=== PATIENT | female | born 1970 | race Caucasian/White ===

== ENCOUNTER 2019-06-27 20:42 | Emergency (ER) | payer BC ==
[~2019-06-27] VITALS: Ht 165.1 cm; Wt 59.1 kg
[2019-06-27 20:46] VITALS: BP 123/88
--- NOTE | 2019-06-27 20:53 | NUR ---
CRISTINA REPORTS TETANUS GREATER 5 YEARS
--- NOTE | 2019-06-27 21:02 | NUR ---
LEFT LATERAL CRESENT SHAPED LACERATION TO HAND IRRIGATED WITH NaCl WITH AREOJET CLEANED. PATIETN TOLERATED WELL.
[2019-06-27] MEDS ORDERED: LIDOcaine 1% W/epiNEPHrine 1:200,000 10ml vial IJ ONE (21:10)
[2019-06-27] MEDS ORDERED: TETanus/Pertussis (Acell)/Diphther VAC/PF (Tdap-Adult) 0.5ml syringe IMVAC ONE (21:10)
== END 2019-06-27 22:16 | disposition home or self-care (01) ==
LOC: ER 20:42
DX: S61.412A Laceration without foreign body of left hand, initial encounter (principal); R19.7 Diarrhea, unspecified; K59.00 Constipation, unspecified; W26.8XXA Contact with other sharp object(s), not elsewhere classified, initial encounter; Y93.89 Activity, other specified; Y92.89 Other specified places as the place of occurrence of the external cause; Y99.8 Other external cause status
CPT/HCPCS: 12002; 90471; 90715; 99283

== ENCOUNTER 2021-02-15 19:54 | Emergency (ER) | payer BC ==
[~2021-02-15] VITALS: Ht 165.1 cm; Wt 56.8 kg
[2021-02-15 20:33] LABS: BASOPHILS % (AUTO) 0.4 % (0-1); EOSINOPHILS % (AUTO) 0.2 % (0-6); HEMATOCRIT 37.8 % (35.0-45.0); HEMOGLOBIN 13.1 g/dl (12.0-16.0); LYMPHOCYTES % (AUTO) 8.9 % (21-51); MEAN CORPUSCULAR HEMOGLOBIN 31.6 PG (27.0-31.0); MEAN CORPUSCULAR HGB CONC 34.7 g/dL (33.0-36.5); MEAN PLATELET VOLUME 7.8 FL (7.4-10.4); MONOCYTES # (AUTO) 0.4 X10'3 (0-0.9); MONOCYTES % (AUTO) 3.4 % (2-12); NEUTROPHILS # (AUTO) 9.9 X10'3 (1.8-7.7); NEUTROPHILS % (AUTO) 87.1 % (42-75); PLATELET COUNT 225 X10'3 (140-440); RED BLOOD COUNT 4.15 X10'6 (4.20-5.60); RED CELL DISTRIBUTION WIDTH 12.4 % (11.5-14.5); WHITE BLOOD COUNT 11.3 X10'3 (4.5-11.0)
[2021-02-15 20:46] LABS: ALANINE AMINOTRANSFERASE 38 U/L (12-78); ALBUMIN/GLOBULIN RATIO 1.3 (1.1-1.5); ALKALINE PHOSPHATASE 65 IU/L (46-116); ANION GAP 11 (8-16); ASPARTATE AMINO TRANSFERASE 33 U/L (10-37); BILIRUBIN,TOTAL 0.5 MG/DL (0.1-1.0); BLOOD UREA NITROGEN 22 MG/DL (7-18); BUN/CREATININE RATIO 22.4 (6.6-38.0); CALCIUM 9.2 MG/DL (8.5-10.1); CHLORIDE 104 MMOL/L (99-107); CREATININE 0.98 MG/DL (0.40-0.90); GLUCOSE 151 MG/DL (70-104); LIPASE 50 U/L (73-393); POTASSIUM 3.6 MMOL/L (3.5-5.1); SODIUM 141 MMOL/L (135-145); TOTAL CARBON DIOXIDE 25.9 MMOL/L (24-32); TOTAL PROTEIN 7.1 G/DL (6.4-8.2); eGFR 60 ML/MIN
[2021-02-15] MEDS ORDERED: ondansetron 4mg rapidly disintigrating tab PO ONE (21:35)
[2021-02-15 22:03] LABS: URINE HCG NEGATIVE (NEG)
[2021-02-15 22:06] LABS: CLARITY,URINE SLIGHTLY CLOUDY (Clear); COLOR,URINE YELLOW (Yellow); GLUCOSE, URINE NEGATIVE (Neg); KETONES,URINE >=80 mg/dl (Neg); LEUKOCYTE ESTERASE ,URINE NEGATIVE (Neg); NITRITES, URINE NEGATIVE (Neg); OCCULT BLOOD,URINE TRACE-INTACT (Neg); PH,URINE 7.5 (4.8-8.0); PROTEIN,URINE NEGATIVE (Neg); UROBILINOGEN,URINE 0.2 E.U/dL (0.2-1.0)
[2021-02-15 22:10] LABS: UA COLLECTION TYPE CLN CATCH MIDSTREAM
[2021-02-15 22:14] LABS: BACTERIA,URINE FEW /HPF (Neg); MUCUS STRANDS FEW /LPF (Neg); SQUAMOUS EPITHELIAL CELL,UR FEW /LPF (FEW); TRANSITIONAL EPI CELLS,URINE FEW /HPF
[2021-02-15] MEDS ORDERED: morphine 4 MG/ML inj SYRINge IV ONE (23:55)
[2021-02-15] MEDS ORDERED: ondansetron/PF 4mg/2ml inj IV ONE (23:55)
[2021-02-15] MEDS ORDERED: normal saline 1000ml 1,000 ML IV ONE (23:55)
[2021-02-16 00:47] LABS: BILIRUBIN,DIRECT 0.1 MG/DL (0-0.3)
[2021-02-16 01:59] VITALS: BP 116/53
[2021-02-16] MEDS ORDERED: HYDR-3965 PO (02:14)
[2021-02-16] MEDS ORDERED: NITR100C6 PO (02:14)
== END 2021-02-16 02:48 | disposition home or self-care (01) ==
LOC: ER 19:55
DX: K80.80 Other cholelithiasis without obstruction (principal); N39.0 Urinary tract infection, site not specified; Z95.1 Presence of aortocoronary bypass graft
CPT/HCPCS: 36415; 74176; 80053; 81001; 81025; 82248; 83690; 85025; 87088; 96361; 96374; 96375; 99284; J2270; J2405; J7030; 96376

== ENCOUNTER 2023-06-06 06:06 | Day surgery (SDC) | payer BC ==
[2023-06-06] VITALS (11 sets, daily range): BP systolic 107–151; BP diastolic 67–96; PULSE 62–80; RESP 8–17; TEMP 98.1; O2SAT 98–100
[~2023-06-06] VITALS: Ht 165.1 cm; Wt 56.7 kg
[~2023-06-06 06:06] MED LIST: A-F BETAFOOD PO; ACET-1025 PO; ALBU8HFA PO; AMOX-100 PO; CHOL20003 PO; ENZYCORE PO; FLUT16SP26 BOTHNARES; KETO10TA2 PO; MAGN400C PO; RENAFOOD PO; [UNRECOGNIZED DRUG - CODE] PO; [UNRECOGNIZED DRUG - OTHER] PO; [UNRECOGNIZED DRUG - OTHER] PO; [UNRECOGNIZED DRUG - OTHER] PO
[2023-06-06] MEDS ORDERED: tranexamic acid 100mg/ml inj. ONE (06:28)
[2023-06-06] MEDS ORDERED: LIDOcaine 1% w/EPI 1:100,000 inj. MDV 50 ML VIAL ONE (06:28)
[2023-06-06] MEDS ORDERED: epiNEPHrine 1 mg/ml 30ml MDV ONE (06:28)
[2023-06-06] MEDS ORDERED: mupirocin 2% ointment 22GM ONE (06:29)
[2023-06-06] MEDS ORDERED: cocaine 4% topical solution 4ml bottle ONE (06:32)
[2023-06-06] MEDS ORDERED: oxymetazoline 15 ML nasal spray NS ONE (06:32)
[2023-06-06] MEDS: famotidine 20mg tablet PO ONE (06:47)
[2023-06-06] MEDS: ringers solution, lacted 1,000 ML IV SCH (06:49)
[2023-06-06] MEDS: oxymetazoline 15 ML nasal spray NS ONE (07:32)
[2023-06-06] MEDS ORDERED: ringers solution, lacted 1,000 ML IV ONE (07:35)
[2023-06-06] MEDS: cocaine 4% topical solution 4ml bottle TP ONE (08:00)
[2023-06-06] MEDS ORDERED: sevoflurane 250ml liquid IH ONE (08:08)
[2023-06-06] MEDS: famotidine/PF 10 mg/ml inj IV ONE (08:14)
[2023-06-06] MEDS ORDERED: meperidine/PF 25mg/ml syringe IV PRN (08:50)
[2023-06-06] MEDS ORDERED: ringers solution, lacted 1,000 ML IV SCH (08:50)
[2023-06-06] MEDS ORDERED: morphine 2 MG/ML inj. syringe IV PRN (08:50)
[2023-06-06] MEDS ORDERED: ondansetron/PF 4mg/2ml inj IV PRN (08:50)
[2023-06-06] MEDS ORDERED: proCHLORperazine 10 MG/2 ml inj IV PRN (08:50)
[2023-06-06] MEDS ORDERED: ondansetron/PF 4mg/2ml inj ONE (09:05)
[2023-06-06] MEDS ORDERED: LIDOcaine 1%/PF 5ML 10 MG/ML VIAL ONE (09:05)
[2023-06-06] MEDS ORDERED: propofol inj 20 ML IV ONE (09:05)
[2023-06-06] MEDS ORDERED: dexamethasone sod phosphate 4mg/ml inj. ONE (09:05)
[2023-06-06] MEDS: meperidine/PF 25mg/ml syringe IV PRN (09:43)
[2023-06-06] MEDS ORDERED: mupirocin 2% nasal ointment 1gm UD NS ONE (10:15)
[2023-06-06] MEDS: salt irrigation nasal spray 45 ML SPRAY NS SCH (10:20)
[2023-06-06] MEDS: mupirocin 2% nasal ointment 1gm UD NS SCH (10:21)
== END 2023-06-06 10:34 | disposition home or self-care (01) ==
LOC: PAS 06:06
PROVIDERS: ATTEND Otolaryngology
DX: J34.2 Deviated nasal septum (principal); J34.3 Hypertrophy of nasal turbinates; Z85.828 Personal history of other malignant neoplasm of skin; Z87.440 Personal history of urinary (tract) infections; Z90.49 Acquired absence of other specified parts of digestive tract; Z98.51 Tubal ligation status
CPT/HCPCS: 30140; 30520; 93005; A6402; J0171; J1100; J2175; J2405; J2704; J3490; J7030; J7120; Z7506; Z7508; Z7512; A4618; A6449; A7000